=== PATIENT | female | born 1990 | race Caucasian/White ===

== ENCOUNTER 2018-07-24 08:09 | Inpatient (IN) | payer OTHER ==
[2018-07-24] MEDS ORDERED: Lactated Ringers 1000 ML Bag* 1,000 ML IV ONE ×2 (09:03→19:19)
[2018-07-24] MEDS ORDERED: Buffered Lidocaine 1% SYRIN* 1 ML/SYRINGE INTRADERM ONE (09:03)
[2018-07-24] MEDS ORDERED: Famotidine TAB* 20 MG PO PRN ×2 (09:16→19:19)
--- NOTE | 2018-07-24 09:22 | HP ---
General Information - Reason for Visit Patient here for post dates induction of labor - General Information Maternal Age: 28 Grav: 1 Para: 0 SAB: 0 IEA: 0 Estimated Due Date: 07/17/18 Maternal Blood Type and Rh: B Positive - Results this Serology/RPR Result: Non-Reactive Rubella Result: Immune HBsAg Result: Negative HIV Result: Negative GBS Culture Result: Positive Past Medical History Delivery History: See Records Delivery History Comment: No previous pregnancies Pertinent Past Medical History: See Records - None Pertinent Past Surgical History: None Pertinent Family History: Non-Contributory Family History Comment: Celiac Asthma Endometriosis PCOS Hypercholesteremia RA Lupus Liver Ca Esophageal Ca Hypothyroidism Myeloproliferative dz - Antepartal Records Antepartal Records: Reviewed, Complicated by: - Possible SVT in ; elected not to take atenolol but managing with magnesium Review of Systems CV Complaint: No Respiratory: Shortness of Breath: No Gastrointestinal: No Nausea/Vomiting, Normal Bowel Movement Genitourinary: No Dysuria, No Leaking Fluid, Spotting Musculoskeletal: No Complaint Neurological: No Headache, No Visual Changes Movement: Normal Exam Allergies/Adverse Reactions: Allergies No Known Allergies Allergy (Verified 07/24/18 08:35) BP 131/85, repeat 127/74 T 98.2 HR 83 RR 18 O2 100 - Measurements Height: 5 ft 4.25 in Weight: 184 lb Weight in lbs: 184.076992 Body Mass Index (BMI): 31.3 Pre- Weight: 132 lb Weight Gained This : 52 lbs and 0 ozs - Exam Breast: Breast Exam Deferred CVA: No CVA Tenderness Extremities: No Edema Heart: Normal Rhythm/Heart Sounds HEENT: No Significant Findings Lungs: Clear Bilaterally Rectal: Rectal Exam Deferred Reflexes: DTR 2+, - - no clonus Thyroid: - - WNL @ entry to care - Abdominal Exam Abdomen Exam: Non-Tender, Fundal Height Consistent with Dates - Ultrasound/Biophysical Profile Ultrasound Status: Not Done Targeted Exam Findings See L&D Outpatient Visit Provider Note for Findings: N/A Estimated Weight: 8lb Cervical Exam: 2cm Effacement: 90% Station: 0 Presenting Part: Vertex Membrane Status: Intact Bleeding/Discharge: None EFM Findings - External Monitor Findings Baseline Heart Rate: 135 External Monitor Findings: Accelerations Present, No Pattern of Variable or Late Decelerations, Variability Moderate Contractions: Irregular, Mild, < 45 Seconds Contraction Frequency: q 4-8 min Assessment/Plan - Assessment 28 yo here for postdates induction of labor. IBOW. GBS positive. No evidence metabolic acidemia. - Obstetrical Risk Factors Obstetrical Risk Factors: GBS Positive - Plan Plan: Induction, Admit - Anticipate Vaginal Delivery Plan Comment: Admit to L&D. PARQ discussion of low dose pitocin induction given favorable cervical exam. Patients in agreement. Plan to begin GBS prophylaxis with PCN once contractions are regular and approx q 5 min. Patient will desires epidural once uncomfortable. Anticipate SVB. - Date/Time of Admission Date of Admission: 07/24/18 Time of Admission: 08:56
[2018-07-24] MEDS ORDERED: Oxytocin in LR* 20 UNITS/1,000 ML BAG IVPB SCH (10:00)
[2018-07-24] MEDS ORDERED: Lactated Ringers 1000 ML Bag* 1,000 ML IV SCH ×2 (10:00→20:00)
[2018-07-24 10:47] LABS: ABS Basophils 0 10^3/ul (0-0.2); ABS Eosinophils 0 10^3/ul (0-0.6); ABS Lymphocytes 2.3 10^3/ul (1.0-4.8); ABS Monocytes 0.9 10^3/ul (0-0.8); ABS Neutrophils 5.4 10^3/ul (1.5-7.7); ABS Nucleated RBC 0 10^3/ul; Eosinophil % 0.4 %; Hematocrit 36 % (35-47); Hemoglobin 12.1 g/dl (12.0-16.0); Lymphocyte % 26.5 %; Mean Corpuscular HGB Conc 33 g/dl (31-36); Mean Corpuscular Hemoglobin 31 pg (27-31); Mean Corpuscular Volume 92 fL (80-97); Mean Platelet Volume 10.6 fL (7.4-10.4); Nucleated Red Blood Cells % 0.1; Platelet Count 168 10^3/ul (150-450); Red Blood Count 3.96 10^6/ul (4.00-5.40); Red Cell Distribution Width 14 % (10.5-15); White Blood Count 8.6 10^3/ul (3.5-10.8)
--- NOTE | 2018-07-24 14:57 | PN ---
Progress Note - Progress Note Date of Service: 07/24/18 Note: S: Patient feeling slightly more uncomfortable but still coping very well. Has been moving around vs resting, sometimes ctx stronger. O: VE deferred FHT 130 Pit @ 10 VSS, afebrile UCs q 1.5-3 A: IUP @ 41+0 weeks for induction of labor GBS positive No evidence metabolic acidemia P: Continue pitocin, titrating as necessary. Encouraged position changes. Pain management as desired.
--- NOTE | 2018-07-24 17:56 | PN ---
Progress Note - Progress Note Date of Service: 07/24/18 Note: S: Patient reports contractions slightly stronger, has to breathe through them now. Up on ball, coping well. Would consider tub. O: VE 3-4cm/100/0 VSS, afebrile FHT 130, Cat 1 Pit at 14, lowered to 10 UCs q 1.5-3 min A: IUP @ 41 weeks for induction in early labor IBOW no evidence acidemia GBS P: Patient to try tub for pain relief. Will initiate GBS prophylaxis. Planning epidural when not coping well any longer. Anticipate SVB.
[2018-07-24] MEDS ORDERED: Penicillin G Potassium IV* 5,000,000 UNITS in NS 0.9% 100 ML* 100 ML IVPB ONE (18:00)
[2018-07-24] MEDS ORDERED: OBEPIDURAL* 250 ML EPIDURAL ONE (18:36)
[2018-07-24] MEDS ORDERED: Bupivacaine 0.5% SDV PF* 30ML VIAL ONE (18:55)
[2018-07-24] MEDS ORDERED: Ondansetron INJ* 2 MG/ML VIAL IV PRN (19:05)
[2018-07-24] MEDS ORDERED: Ondansetron INJ* 2 MG/ML VIAL ONE (19:06)
[2018-07-24] MEDS ORDERED: Phenylephrine IV* 40 MCG/ML 10 ML SYRINGE IV PUSH PRN (19:19)
[2018-07-24] MEDS ORDERED: Sodium Citrate/Citric Acid* 15 ML UDC PO PRN (19:19)
[2018-07-24] MEDS ORDERED: EPHEDrine (Pressors)* 50 MG/ML VIAL IV PUSH PRN (19:19)
--- NOTE | 2018-07-24 19:38 | PN ---
Progress Note - Progress Note Date of Service: 07/24/18 Note: S: Patient now comfortable with epidural. O: VE deferred FHT 125, cat 1 vss A: IUP in active labor IBOW No evidence metabolic acidemia P: Place catheter, readjust monitoring to get accurate tracing of ctx; in needed restart pitocin. Consider amniotomy after 2nd dose of GBS prophylaxis.
[2018-07-24] MEDS ORDERED: OBEPIDURAL* 250 ML EPIDURAL SCH (20:00)
[2018-07-24] MEDS ORDERED: Penicillin G Potassium IV* 2,500,000 UNITS in NS 0.9% 100 ML* 100 ML IVPB SCH (22:30)
--- NOTE | 2018-07-24 22:53 | PN ---
Progress Note - Progress Note Date of Service: 07/24/18 Note: S: Feeling a little more pressure after initial "numbness" of epidural. Using bolus button with some relief. Denies low pelvic/rectal pressure. O: VE 7/100/0 VSS, afebrile FHT 125 UCs q 2-3 min A: IUP in active labor no evidence acidemia P: PARQ disc amniotomy for labor augmentation; patients in agreement. Clear/bloody fluid. Encouraged side to side with peanut ball. Anticipate SVB.
[2018-07-25] MEDS ORDERED: Glycerin ADULT SUPP PR PRN (02:12)
--- NOTE | 2018-07-25 02:31 | PROCNOTE ---
[facility] OB: Delivery Note - Delivery A Date of : 07/25/18 Time of : 01:27 [place] Sex: Male Score 1 Minute: 9 Score 5 Minutes: 9 Gestational Age in Weeks and Days at Delivery: 41 Weeks and 1 Days Delivery Method: Spontaneous Vaginal Labor: Spontaneous Amniotic Fluid: Clear Estimated Blood Loss: 300 Anesthesia/Analgesia: CEI for Labor Delivered By: Denilson Vargas - Nursery Level of Nursery: Regular/Bedside - Perineum Perineal Injury: 2nd Degree - Perineal. Left sulcal. Left labial. Perineal Repair: By Delivering Practioner - Events Delivery Events of Note: Pitocin During Labor, Pitocin Only After Delivery, Supplemental O2 to Mother, Full Course of Antibiotics - Additional Delivery Notes Additional Delivery Notes: Patient admitted for induction of labor for post dates. Pitocin lead to active labor and was discontinued. Patient received epidural with good relief. Progressed to complete with urge to push. LOL 14'4", pushed 1 hour 6 min. Baby delivered on hands and knees @ 0129 OA to TEENA, shoulders following with maternal efforts. Patient turned over and baby passed through legs to her chest. Apgars 9,9. Cord doubly clamped and cut by FOB once pulsations ceased. Placenta delivered at 0137 with gentle cord traction. Fundus firm to massage and pitocin infusing. Second degree perineal laceration, left sulcal and left labial lacerations repaired with 3-0 and 4-0 Rapide under 1% lidocaine. Baby at breast to initiate . EBL 300ml. Baby name
[2018-07-25] MEDS ORDERED: Oxytocin in LR* 20 UNITS/1,000 ML BAG IVPB SCH (03:00)
[2018-07-25] MEDS ORDERED: Lactated Ringers 1000 ML Bag* 1,000 ML IV SCH (03:00)
[2018-07-25] MEDS: Ibuprofen TAB* 600 MG PO PRN ×3 (04:41→18:09)
[2018-07-25] MEDS: Witch Hazel PAD* JAR TOPICAL PRN (04:42)
[2018-07-25] MEDS: Dibucaine 1% 28.35 GM TUBE PR PRN (04:42)
[2018-07-25] MEDS: Docusate CAP* 100 MG PO SCH ×3 (08:33→20:56)
--- NOTE | 2018-07-25 21:35 | PTEDU ---
Patient Name: TARIQ LUU TARIQ LUU selected video: Follow Me Mum: [employer] to Successful to view on 07/25/19 at 9:35:12 PM from [email or web address]
--- NOTE | 2018-07-25 21:56 | PTEDU ---
Patient Name: TARIQ LUU TARIQ LUU selected video: BBOB: Nurturing Your Gorgeous &Growing Baby by to view o n 07/25/2018 at 9:55:32 PM from [email or web address]
[2018-07-26] MEDS: Ibuprofen TAB* 600 MG PO PRN ×4 (00:09→18:39)
[2018-07-26] MEDS: Acetaminophen TAB* 325 MG PO PRN ×2 (06:12→20:16)
[2018-07-26 06:50] LABS: ABS Basophils 0.1 10^3/ul (0-0.2); ABS Eosinophils 0.1 10^3/ul (0-0.6); ABS Lymphocytes 3.7 10^3/ul (1.0-4.8); ABS Monocytes 0.9 10^3/ul (0-0.8); ABS Neutrophils 6.8 10^3/ul (1.5-7.7); ABS Nucleated RBC 0 10^3/ul; Eosinophil % 1.2 %; Hematocrit 30 % (35-47); Hemoglobin 10.1 g/dl (12.0-16.0); Lymphocyte % 31.8 %; Mean Corpuscular HGB Conc 34 g/dl (31-36); Mean Corpuscular Hemoglobin 31 pg (27-31); Mean Corpuscular Volume 92 fL (80-97); Mean Platelet Volume 9.9 fL (7.4-10.4); Nucleated Red Blood Cells % 0.1; Platelet Count 154 10^3/ul (150-450); Red Blood Count 3.27 10^6/ul (4.00-5.40); Red Cell Distribution Width 15 % (10.5-15); White Blood Count 11.6 10^3/ul (3.5-10.8)
[2018-07-26] MEDS: Docusate CAP* 100 MG PO SCH ×3 (08:45→20:11)
[2018-07-26] MEDS ORDERED: Ferrous Gluconate TAB* 324 MG TAB PO SCH (09:00)
--- NOTE | 2018-07-26 17:24 | PTEDU ---
Patient Name: TARIQ LUU TARIQ LUU selected video: Follow Me Mum: [employer] to Successful to view on 07/26/19 at 5:23:27 PM from [email or web address]
--- NOTE | 2018-07-26 22:59 | PTEDU ---
Patient Name: TARIQ LUU TARIQ LUU selected video: Never Ever Shake a Baby to view on 07/26/2018 at 10:59:02 PM [place] [facility] [id number]
[2018-07-27] MEDS: Ibuprofen TAB* 600 MG PO PRN ×2 (00:29→08:36)
[2018-07-27] MEDS: Acetaminophen TAB* 325 MG PO PRN ×2 (02:53→12:07)
[2018-07-27] MEDS: Docusate CAP* 100 MG PO SCH (08:37)
[2018-07-27 09:15] VITALS: BP 127/63
--- NOTE | 2018-07-27 09:50 | PTEDU ---
Patient Name: TARIQ LUU TARIQ LUU selected video: BBOB: Bonding Through Massage to view on 07/27/2018 at 9:50:12 AM from [email or web address]
[2018-07-27] MEDS: Dibucaine 1% 28.35 GM TUBE PR PRN (12:08)
[2018-07-27] MEDS: Witch Hazel PAD* JAR TOPICAL PRN (12:08)
== END 2018-07-27 13:11 | disposition home or self-care (01) | DRG 807 ==
LOC: MCHOBOUT 08:09 → MCHOB 08:56
PROVIDERS: ADMIT Midwife; ATTEND Midwife
PROC: 3E033VJ Introduction of Other Hormone into Peripheral Vein, Percutaneous Approach (ICD-10-PCS; principal; 2018-07-24)
PROC: 10E0XZZ Delivery of Products of Conception, External Approach (ICD-10-PCS; 2018-07-24)
PROC: 0KQM0ZZ Repair Perineum Muscle, Open Approach (ICD-10-PCS; 2018-07-24)
PROC: 10907ZC Drainage of Amniotic Fluid, Therapeutic from Products of Conception, Via Natural or Artificial Opening (ICD-10-PCS; 2018-07-24)
PROC: 4A1HXCZ Monitoring of Products of Conception, Cardiac Rate, External Approach (ICD-10-PCS; 2018-07-24)
DX: O48.0 Post-term pregnancy (principal); Z37.0 Single live birth; O99.824 Streptococcus B carrier state complicating childbirth; O70.1 Second degree perineal laceration during delivery; Z3A.41 41 weeks gestation of pregnancy
CPT/HCPCS: 36415; 85025; 86850; 86900; 86901; A9270-GY; J2405; J2540